=== PATIENT | female | born 1985 | race Caucasian/White ===

== ENCOUNTER 2019-06-02 08:08 | Observation (INO) | payer OTHER ==
[~2019-06-02] VITALS: Ht 172.7 cm; Wt 99.3 kg
[2019-06-02] MEDS ORDERED: PNV1TABL50 PO (09:05)
[2019-06-02] MEDS ORDERED: ASPI-1393 PO (09:05)
[2019-06-02 11:11] LABS: CLARITY URINE CLEAR (CLEAR); COLOR URINE YELLOW (YELLOW); KETONES URINE NEGATIVE (NEGATIVE); LEUKOCYTE ESTERASE URINE NEGATIVE (NEGATIVE); NITRITE URINE NEGATIVE (NEGATIVE); OCCULT BLOOD URINE NEGATIVE (NEGATIVE); PROTEIN URINE NEGATIVE (NEGATIVE); UROBILINOGEN URINE 0.2 E.U./dL (0.2-1.0)
== END 2019-06-03 07:30 | disposition home or self-care (01) ==
LOC: 8 EST LDRP 08:08 → 8 EST A/PP 17:50
PROVIDERS: ADMIT Obstetrics & Gynecology; ATTEND Obstetrics & Gynecology
DX: O26.852 Spotting complicating pregnancy, second trimester (principal); Z3A.21 21 weeks gestation of pregnancy
CPT/HCPCS: 76805; 81003; 99281; G0378